=== PATIENT | male | born 1945 | race Caucasian/White ===

== ENCOUNTER 2019-06-03 03:41 | Inpatient (IN) ==
[2019-06-03] MEDS ORDERED: Naloxone 0.4 MG/ML INJ IVP PRN (09:24)
[2019-06-03] MEDS ORDERED: traMADol 50 MG TABLET PO PRN (09:24)
[2019-06-03] MEDS ORDERED: Ibuprofen 400 MG TABLET PO PRN (09:24)
[2019-06-03] MEDS ORDERED: Ondansetron 4 MG/2 ML VIAL IVP PRN (09:24)
[2019-06-03] MEDS ORDERED: Isovue-370 500 ML BOTTLE IVP ONE (09:26)
[2019-06-03] MEDS ORDERED: D5% in Water 1,000 ML IVC PRN (09:39)
[2019-06-03] MEDS ORDERED: Dextrose Gel 15 GM/37.5 ML TUBE PO PRN ×2 (09:39)
[2019-06-03] MEDS ORDERED: *HR* Dextrose 50 % in Water (Syg) 50 ML SYRINGE IVP PRN (09:39)
[2019-06-03] MEDS ORDERED: Budesonide/Formoterol 80/4.5 1 PUFF INH IH SCH (10:00)
[2019-06-03] MEDS ORDERED: 0.9 % Sodium Chloride 1,000 ML IVC ONE (10:02)
[2019-06-03] MEDS: Budesonide/Formoterol 160/4.5 1 PUFF INH IH SCH ×2 (11:08→20:34)
[2019-06-03] MEDS: Ipratropium/Albuterol Neb 3 ML IH PRN ×3 (11:11→20:36)
[2019-06-03] MEDS: 0.9 % Sodium Chloride 1,000 ML IVC SCH ×2 (11:20→21:14)
[2019-06-03] MEDS: predniSONE 20 MG TABLET PO SCH (11:22)
[2019-06-03 11:26] LABS: Hepatitis B Surface Antigen Nonreactive (Nonreactive)
[2019-06-03] MEDS: Azithromycin 500 MG in 0.9 % Sodium Chloride 250 ML IVPB SCH (11:27)
[2019-06-03 11:55] LABS: Hepatitis C Virus Antibody Nonreactive (Nonreactive)
[2019-06-03 11:56] LABS: Hepatitis B Core IgM Nonreactive (Nonreactive)
[2019-06-03 11:57] LABS: Hepatitis A Antibody IgM Nonreactive (Nonreactive)
[2019-06-03] MEDS: Piperacillin/Tazobactam 3.375 GM in 0.9 % Sodium Chloride Mini Bag 100 ML IVPB SCH ×3 (12:13→23:15)
[2019-06-03] MEDS: Insulin LISPRO 300 UNITS/3 ML VIAL SQ SCH ×2 (12:18→16:27)
[2019-06-03] MEDS: Furosemide 40 MG TABLET PO SCH (16:30)
[2019-06-03] MEDS ORDERED: Insulin LISPRO 300 UNITS/3 ML VIAL SQ SCH (21:00)
[2019-06-03] MEDS: Diltiazem CD (24hr) 180 MG CAPSULE PO SCH (21:14)
[2019-06-04 05:23] LABS: Immature Granulocytes % 0.4 % (0-4); Lymphocytes % 6.2 %; Mean Corpuscular HGB Conc 32.4 g/dL (31.6-35.5); Mean Corpuscular Volume 89.7 fL (83.0-100.0); Mean Platelet Volume 10.3 fL (9.4-12.4); Monocytes % 4.7 %; Platelet Count 208 K/mcL (140-400); Red Blood Count 3.79 M/mcL (4.19-5.50); Red Cell Distribution Width 15.3 % (11.5-14.5); Segmented Neutrophils % 88.6 %; White Blood Count 16.5 K/mcL (4.3-11.1)
[2019-06-04 05:24] LABS: Basophils % 0.1 %; Monocytes # 0.8 K/mcL (0.0-1.3); Neutrophils # 14.7 K/mcL (1.6-8.9)
[2019-06-04 05:38] LABS: Alanine Aminotransferase 287 Units/L (7-52); Albumin/Globulin Ratio 1.2 (1.1-2.2); Alkaline Phosphatase 376 Units/L (34-104); Aspartate Amino Transferase 129 Units/L (13-39); BUN/Creatinine Ratio 19 (6-26); Bilirubin,Total 1.1 mg/dL (0.3-1.0); Blood Urea Nitrogen 17 mg/dL (8-23); Calcium 8.7 mg/dL (8.6-10.3); Carbon Dioxide 25 mEq/L (23-29); Chloride 110 mEq/L (98-107); Globulin 2.5 g/dL (2.4-3.5); Glucose 179 mg/dL (70-105); Osmolality,Calculated 302 (280-300); Sodium 143 mEq/L (136-145); Total Protein 5.5 g/dL (6.4-8.9); eGFR For African Americans > 60 (> 60); eGFR For Non-African Americans > 60 (> 60)
[2019-06-04] MEDS: Ipratropium/Albuterol Neb 3 ML IH PRN ×3 (05:39→20:25)
[2019-06-04] MEDS: Insulin LISPRO 300 UNITS/3 ML VIAL SQ SCH ×3 (08:07→18:01)
[2019-06-04] MEDS: Furosemide 40 MG TABLET PO SCH ×2 (08:07→18:02)
[2019-06-04] MEDS: predniSONE 20 MG TABLET PO SCH (08:26)
[2019-06-04] MEDS: Piperacillin/Tazobactam 3.375 GM in 0.9 % Sodium Chloride Mini Bag 100 ML IVPB SCH ×3 (08:26→23:15)
[2019-06-04] MEDS: Diltiazem CD (24hr) 180 MG CAPSULE PO SCH ×2 (08:26→20:54)
[2019-06-04] MEDS: 0.9 % Sodium Chloride 1,000 ML IVC SCH (08:27)
[2019-06-04] MEDS ORDERED: Diltiazem CD (24hr) 180 MG CAPSULE PO SCH (09:00)
[2019-06-04] MEDS: Azithromycin 500 MG in 0.9 % Sodium Chloride 250 ML IVPB SCH (11:15)
[2019-06-04] MEDS: Budesonide/Formoterol 160/4.5 1 PUFF INH IH SCH ×2 (11:20→20:25)
[2019-06-04] MEDS ORDERED: *HR* HYDROmorphone (PF) 1 MG/ML SYRINGE IVP PRN ×2 (15:01→19:18)
[2019-06-04] MEDS ORDERED: *HR* OxyCODONE Immed Rel 5 MG TABLET PO PRN ×2 (15:01→19:18)
[2019-06-04] MEDS ORDERED: *HR* Propofol 200 MG/20 ML VIAL IVP ONE (15:34)
[2019-06-04] MEDS ORDERED: *HR* FentaNYL (PF) 100 MCG/2 ML VIAL ONE ×2 (15:34→17:12)
[2019-06-04] MEDS ORDERED: *HR* Rocuronium Bromide 50 MG/5 ML VIAL ONE (15:35)
[2019-06-04] MEDS ORDERED: *HR* Midazolam HCl 2 MG/2 ML VIAL ONE (15:35)
[2019-06-04] MEDS ORDERED: Lidocaine HCL 4 ML Topical Solution (Laryng-O-Jet Kit Sterile Pak) TP ONE (15:35)
[2019-06-04] MEDS ORDERED: Lidocaine -MPF 2% 2 ML VIAL ONE (15:35)
[2019-06-04] MEDS ORDERED: Dexamethasone 4 MG/ML VIAL ONE (15:35)
[2019-06-04] MEDS ORDERED: Ondansetron 4 MG/2 ML VIAL ONE (15:35)
[2019-06-04] MEDS ORDERED: Isovue-300 50ML VIAL ONE (15:37)
[2019-06-04] MEDS ORDERED: *HR* PHENYLEPHRINE 1,000 MCG/10 ML SYRINGE IVP ONE (17:04)
[2019-06-04] MEDS ORDERED: *HR* Magnesium Sulfate 1 GM/2 ML VIAL ONE (17:26)
[2019-06-04] MEDS ORDERED: *HR* Heparin 5,000 UNIT/ML VIAL SQ SCH (18:00)
[2019-06-04] MEDS ORDERED: cloNIDine HCl 0.1 MG TABLET PO ONE (18:24)
[2019-06-04] MEDS ORDERED: cloNIDine HCl 0.1 MG TABLET ONE (18:25)
[2019-06-04] MEDS ORDERED: Ringers Solution, Lactated 1,000 ML ONE (18:33)
[2019-06-04] MEDS ORDERED: Naloxone 0.4 MG/ML INJ IVP PRN (19:18)
[2019-06-04] MEDS ORDERED: Ibuprofen 400 MG TABLET PO PRN (19:18)
[2019-06-04] MEDS ORDERED: traMADol 50 MG TABLET PO PRN (19:18)
[2019-06-04] MEDS ORDERED: D5% in Water 1,000 ML IVC PRN (19:18)
[2019-06-04] MEDS ORDERED: Ondansetron 4 MG/2 ML VIAL IVP PRN (19:18)
[2019-06-04] MEDS ORDERED: *HR* Dextrose 50 % in Water (Syg) 50 ML SYRINGE IVP PRN (19:18)
[2019-06-04] MEDS ORDERED: Dextrose Gel 15 GM/37.5 ML TUBE PO PRN ×2 (19:18)
[2019-06-04] MEDS ORDERED: Insulin LISPRO 300 UNITS/3 ML VIAL SQ SCH (21:00)
[2019-06-05 02:04] LABS: Basophils % 0.1 %; Hemoglobin 11.1 g/dL (12.9-16.9); Immature Granulocytes % 0.5 % (0-4); Lymphocytes # 0.8 K/mcL (0.6-4.6); Lymphocytes % 5.8 %; Mean Corpuscular HGB Conc 30.8 g/dL (31.6-35.5); Mean Corpuscular Hemoglobin 28.7 pg (28.0-33.3); Mean Platelet Volume 10.5 fL (9.4-12.4); Monocytes # 0.4 K/mcL (0.0-1.3); Monocytes % 2.6 %; Neutrophils # 12.5 K/mcL (1.6-8.9); Platelet Count 222 K/mcL (140-400); Red Blood Count 3.87 M/mcL (4.19-5.50); Red Cell Distribution Width 15.4 % (11.5-14.5); White Blood Count 13.7 K/mcL (4.3-11.1)
[2019-06-05 02:19] LABS: Alanine Aminotransferase 230 Units/L (7-52); Albumin 3.1 g/dL (3.5-5.7); Albumin/Globulin Ratio 1.2 (1.1-2.2); Alkaline Phosphatase 312 Units/L (34-104); Aspartate Amino Transferase 64 Units/L (13-39); BUN/Creatinine Ratio 20 (6-26); Bilirubin,Total 0.7 mg/dL (0.3-1.0); Blood Urea Nitrogen 20 mg/dL (8-23); Calcium 8.6 mg/dL (8.6-10.3); Carbon Dioxide 27 mEq/L (23-29); Chloride 106 mEq/L (98-107); Globulin 2.6 g/dL (2.4-3.5); Glucose 220 mg/dL (70-105); Osmolality,Calculated 299 (280-300); Potassium 4.1 mEq/L (3.5-5.1); Sodium 140 mEq/L (136-145); Total Protein 5.7 g/dL (6.4-8.9); eGFR For African Americans > 60 (> 60); eGFR For Non-African Americans > 60 (> 60)
[2019-06-05] MEDS ORDERED: *HR* Heparin 5,000 UNIT/ML VIAL SQ SCH (06:00)
[2019-06-05] MEDS ORDERED: Furosemide 40 MG TABLET PO SCH (08:00)
[2019-06-05] MEDS: Insulin LISPRO 300 UNITS/3 ML VIAL SQ SCH ×2 (08:29→12:59)
[2019-06-05] MEDS: Piperacillin/Tazobactam 3.375 GM in 0.9 % Sodium Chloride Mini Bag 100 ML IVPB SCH (08:33)
[2019-06-05] MEDS: Diltiazem CD (24hr) 180 MG CAPSULE PO SCH (08:38)
[2019-06-05] MEDS ORDERED: predniSONE 20 MG TABLET PO SCH (09:00)
[2019-06-05] MEDS ORDERED: Azithromycin 500 MG in 0.9 % Sodium Chloride 250 ML IVPB SCH (10:00)
[2019-06-05] MEDS: Budesonide/Formoterol 160/4.5 1 PUFF INH IH SCH (10:36)
[2019-06-05] MEDS: Ipratropium/Albuterol Neb 3 ML IH PRN (10:37)
[2019-06-05 11:07] VITALS: BP 142/77
== END 2019-06-05 13:27 | disposition home or self-care (01) | DRG 853 ==
LOC: 2NNU → SUATTDRO 08:44 → 3ANU 06-05 09:55
PROVIDERS: ADMIT Internal Medicine; ATTEND Internal Medicine